=== PATIENT | male | born 1955 | race Hispanic/Latino ===

== ENCOUNTER 2017-05-13 12:58 | Emergency (ER) | payer MEDICAID ==
[2017-05-13 13:15] VITALS: RESP 18; TEMP 98.9
--- NOTE | 2017-05-13 13:44 | ED PDOC ---
Arrival/HPI - General Chief Complaint: Dizziness/Lightheaded Time Seen by Provider: 05/13/17 13:21 Historian: Patient - History of Present Illness Narrative History of Present Illness (Text): 05/13/17 13:25 Henry Donald is a 61 year old male, whose past medical history includes heart stents and vertigo, who presents to the emergency department complaining of dizziness that has gradually become worse since five days ago. Patient reports he was in [place] when his symptoms began causing him to go to the hospital. His symptoms have continued and he feels nauseous. He notes laying on one side and taking Meclozine makes him feel better. The dizziness is worse when he is lying flat. Patient denies any fever, shortness of breath, chest pain, focal weakness , or slurred speech. Patient notes taking Meclozine prior to arrival. PMD: Dr. Cross Time/Duration: < week (5 days) Symptom Onset: Gradual Symptom Course: Improving Activities at Onset: Light Modifying Factors (Text): better when laying on one side, worse when lying flat Associated Symptoms (Text): nausea, dizziness Past Medical History - Provider Review Nursing Documentation Reviewed: Yes - Infectious Disease Hx of Infectious Diseases: None - Cardiac Hx Cardiac Disorders: Yes Hx Hypertension: Yes Other/Comment: heart attack - Pulmonary Hx Respiratory Disorders: No - Neurological Hx Neurological Disorder: No - HEENT Hx HEENT Disorder: No - Renal Hx Renal Disorder: No - Endocrine/Metabolic Hx Endocrine Disorders: No - Hematological/Oncological Hx Blood Disorders: No - Integumentary Hx Dermatological Disorder: No - Musculoskeletal/Rheumatological Hx Musculoskeletal Disorders: No - Gastrointestinal Hx Gastrointestinal Disorders: No - Genitourinary/Gynecological Hx Genitourinary Disorders: No - Psychiatric Hx Psychophysiologic Disorder: Yes Hx Anxiety: Yes Hx Depression: Yes Hx Substance Use: No - Surgical History Hx Cardiac Catheterization: Yes Hx Coronary Stent: Yes (x1) Other/Comment: carpal tunnel - Anesthesia Hx Anesthesia: Yes Hx Anesthesia Reactions: No Family/Social History - Physician Review Nursing Documentation Reviewed: Yes Family/Social History: Unknown Family HX Smoking Status: Never Smoked Hx Alcohol Use: No Hx Substance Use: No Allergies/Home Meds Allergies/Adverse Reactions: Allergies No Known Allergies Allergy (Verified 05/13/17 13:08) Home Medications: Home Meds Medication Instructions Recorded Confirmed Aspirin [Adult Low Dose Aspirin EC] 325 mg PO DAILY 05/13/17 05/13/17 Atorvastatin [Lipitor] 40 mg PO DAILY 05/13/17 05/13/17 Losartan [Cozaar] 50 mg PO DAILY 05/13/17 05/13/17 Metoprolol [Lopressor] 50 mg PO BID 05/13/17 05/13/17 Sertraline [Zoloft] 100 mg PO DAILY 05/13/17 05/13/17 Review of Systems - Review of Systems Constitutional: absent: Fevers Respiratory: absent: SOB Cardiovascular: absent: Chest Pain Gastrointestinal: Nausea. absent: Abdominal Pain, Diarrhea Neurological: Dizziness. absent: Headache Physical Exam Vital Signs Reviewed: Yes Vital Signs Temp Pulse Resp BP Pulse Ox 05/13/17 16:00 65 18 134/79 96 05/13/17 13:13 98.9 F 63 18 136/86 95 Temperature: Afebrile Blood Pressure: Normal Pulse: Regular Respiratory Rate: Normal Appearance: Positive for: Well-Appearing, Non-Toxic, Comfortable Pain Distress: None Mental Status: Positive for: Alert and Oriented X 3 - Systems Exam Head: Present: Atraumatic, Normocephalic Pupils: Present: PERRL Extroacular Muscles: Present: EOMI Conjunctiva: Present: Normal Ears: Present: Other (bilateral cerumen ) Mouth: Present: Moist Mucous Membranes Neck: Present: Normal Range of Motion. No: MIDLINE TENDERNESS, Paraspinal Tenderness, JVD, Bruit Respiratory/Chest: Present: Clear to Auscultation, Good Air Exchange. No: Respiratory Distress, Accessory Muscle Use Cardiovascular: Present: Regular Rate and Rhythm, Normal S1, S2. No: Murmurs Abdomen: Present: Normal Bowel Sounds. No: Tenderness, Distention, Peritoneal Signs Upper Extremity: Present: Normal Inspection. No: Cyanosis, Edema Lower Extremity: Present: Normal Inspection. No: Edema Neurological: Present: GCS=15, CN II-XII Intact, Speech Normal, Motor Func Grossly Intact, Normal Sensory Function, Normal Cerebellar Funct, Gait Normal, Normal 2Pt Descrimination Skin: Present: Warm, Dry, Normal Color. No: Rashes Psychiatric: Present: Alert, Oriented x 3, Normal Insight, Normal Concentration Medical Decision Making ED Course and Treatment: 05/13/17 Impression: 61 year old male with dizziness. Clear physical exam. Normal neuro exam. Differential Diagnosis included but are not limited to: Benign Position Vertigo vs Arrythmia, less likely CVA Plan: -- CT Head -- EKG -- Labs -- Reglan -- Reassess and disposition Progress Notes: EKG: NSR at 60bpm with Qwaves in V1-V3, no ST elevations. No previous to compare. After reevaluation, patient no longer had symptoms of dizziness. He does feel like his ears are a little clogged and he will f/u with ENT. Neuro exam repeat is normal and unchanged. No ataxia. No dizziness or lightheadedness when standing. He will also f/u with his primary doctor Dr. Deluca - Lab Interpretations Lab Results: 05/13/17 14:05 05/13/17 14:17 Lab Results 05/13/17 14:17: Sodium 140, Potassium 4.4, Chloride 101, Carbon Dioxide 27, Anion Gap 16, BUN 20, Creatinine 1.0, Est GFR ( Amer) > 60, Est GFR (Non- Af Amer) > 60, Random Glucose 95, Calcium 9.6, Lactate Dehydrogenase 492, Total Creatine Kinase 87, Troponin I < 0.01 05/13/17 14:05: WBC 8.1, RBC 5.04, Hgb 15.3, Hct 44.5, MCV 88.3, MCH 30.4, MCHC 34.4, RDW 12.8, Plt Count 225, MPV 8.8, Gran % 73.3 H, Lymph % (Auto) 17.5 L, [place] % (Auto) 6.6 H, Eos % (Auto) 2.1, Baso % (Auto) 0.5, Gran # 5.91, Lymph # 1.4, [place] # 0.5, Eos # 0.2, Baso # 0.04 I have reviewed the lab results: Yes - RAD Interpretation Radiology Orders: 05/13/17 13:30 HEAD W/O CONTRAST [CT] Stat - Medication Orders Current Medication Orders: Discontinued Medications Metoclopramide HCl (Reglan) 10 mg IVP STAT STA Stop: 05/13/17 13:33 Last Admin: 05/13/17 13:55 Dose: 10 mg IVP Administration Document 05/13/17 13:55 HI (Rec: 05/13/17 14:14 [facility]) Charges for Administration # of IVP Administrations 1 - Scribe Statement The provider has reviewed the documentation as recorded by the Vera Young Provider Scribe Attestation: All medical record entries made by the Christinibe were at my direction and personally dictated by me. I have reviewed the chart and agree that the record accurately reflects my personal performance of the history, physical exam, medical decision making, and the department course for this patient. I have also personally directed, reviewed, and agree with the discharge instructions and disposition. Disposition/Present on Arrival - Present on Arrival Any Indicators Present on Arrival: No History of DVT/PE: No History of Uncontrolled Diabetes: No Urinary Catheter: No History of Decub. Ulcer: No History Surgical Site Infection Following: None - Disposition Have Diagnosis and Disposition been Completed?: Yes Diagnosis: Dizziness Disposition: HOME/ ROUTINE Disposition Time: 16:00 Patient Plan: Discharge Condition: IMPROVED Discharge Instructions (ExitCare): Dizziness (ED) Additional Instructions: Mr Donald, thank you for letting us take care of you today. Your provider was Dr. Tolbert. You were treated for Dizziness. The emergency medical care you received today was directed at your acute symptoms. If you were prescribed any medication, please fill it and take as directed. It may take several days for your symptoms to resolve. Return to the Emergency Department if your symptoms worsen, do not improve, or if you have any other problems. Please contact your doctor or call one of the physicians/clinics you have been referred to that are listed on the Patient Visit Information form that is included in your discharge packet. Bring any paperwork you were given at discharge with you along with any medications you are taking to your follow up visit. Our treatment cannot replace ongoing medical care by a primary care provider (PCP) outside of the emergency department. Thank you for allowing the [facility] team to be part of your care today. If you had an X-Ray or CT scan: A Radiologist will review the ED reading if any change in treatment is needed we will contact you. If you had a blood, urine, or wound culture: It will take several days for the results, if any change in treatment is needed we will contact you. If you had an STI test: It will take 48 hours for the results. Please call after 1 week if you have not heard back. Prescriptions: Meclizine [Meclizine*] 25 mg PO Q8 PRN #30 tab PRN Reason: Dizziness Referrals: Minerva Deluca MD [Primary Care Provider] - Follow up with primary Satnam Cox DO [Staff Provider] - Follow up with primary Forms: [employer] (Peruvian), WORK NOTE
[2017-05-13 14:18] LABS: BASO # 0.04 K/mm3 (0.0-2.0); BASO % 0.5 % (0.0-3.0); EOS # 0.2 (0.0-0.7); EOS % 2.1 % (1.5-5.0); GRAN # 5.91 (1.4-6.5); GRAN % 73.3 % (50.0-68.0); HEMATOCRIT 44.5 % (42.0-52.0); LYMPH # 1.4 (1.2-3.4); LYMPH % 17.5 % (22.0-35.0); MEAN CELL VOLUME 88.3 fl (80.0-105.0); MEAN CORPUSCULAR HEMOGLOBIN 30.4 pg (25.0-35.0); MEAN CORPUSCULAR HGB CONC 34.4 g/dl (31.0-37.0); MEAN PLATELET VOLUME 8.8 fl (7.0-11.0); MONO # 0.5 (0.1-0.6); MONO % 6.6 % (1.0-6.0); RED CELL DISTRIBUTION WIDTH 12.8 % (11.5-14.5); WHITE BLOOD COUNT 8.1 10^3/ul (4.5-11.0)
[2017-05-13 14:44] LABS: TROPONIN I < 0.01 ng/mL
[2017-05-13 14:52] LABS: BLOOD UREA NITROGEN 20 mg/dL (7-21); CALCIUM 9.6 mg/dL (8.4-10.5); CARBON DIOXIDE 27 mmol/L (21-33); CHLORIDE 101 mmol/L (98-107); GFR AFRICAN-AMERICAN > 60; GLUCOSE,RANDOM 95 mg/dL (70-110); POTASSIUM 4.4 mmol/L (3.6-5.0); SODIUM 140 mmol/L (132-148)
--- NOTE | 2017-05-13 15:38 | CT ---
PROCEDURE: CT HEAD WITHOUT CONTRAST. HISTORY: r/o cva COMPARISON: None available. TECHNIQUE: Axial computed tomography images were obtained through the head/brain without intravenous contrast. Radiation dose: Total exam DLP = 941.65 mGy-cm. This CT exam was performed using one or more of the following dose reduction techniques: Automated exposure control, adjustment of the mA and/or kV according to patient size, and/or use of iterative reconstruction technique. FINDINGS: HEMORRHAGE: No intracranial hemorrhage. BRAIN: No mass effect or edema. No atrophy or chronic microvascular ischemic changes. VENTRICLES: Unremarkable. No hydrocephalus. CALVARIUM: Unremarkable. PARANASAL SINUSES: Unremarkable as visualized. No significant inflammatory changes. MASTOID AIR CELLS: Unremarkable as visualized. No inflammatory changes. OTHER FINDINGS: None. IMPRESSION: Unremarkable unenhanced head CT. Follow-up CT or MRI are available for additional characterization if clinically warranted.
[2017-05-13 16:17] VITALS: BP 134/79; PULSE 65; O2SAT 96
--- NOTE | 2017-05-14 08:43 | CARD ---
APPROVED REPORT EKG Measurement Heart [id number] CA [id number] [id number] <Conclusion> Normal sinus rhythm Septal infarct, age undetermined LAD IVCD STTW changes
== END 2017-05-13 16:19 | disposition home or self-care (01) ==
LOC: ED 12:58
DX: R42 Dizziness and giddiness (principal); I10 Essential (primary) hypertension; Z95.5 Presence of coronary angioplasty implant and graft
CPT/HCPCS: 70450; 80048; 82550; 83615; 84484; 85025; 93005; 96374; 99285; J2765

== ENCOUNTER 2017-12-31 07:08 | Emergency (ER) | payer MEDICAID ==
[2017-12-31 07:25] VITALS: BMI 43.8
[2017-12-31 07:26] VITALS: RESP 19
[2017-12-31 08:07] LABS: BASO # 0.02 K/mm3 (0.0-2.0); BASO % 0.2 % (0.0-3.0); EOS # 0.2 (0.0-0.7); EOS % 1.9 % (1.5-5.0); GRAN # 5.8 (1.4-6.5); GRAN % 65.2 % (50.0-68.0); HEMOGLOBIN 15.3 g/dL (14.0-18.0); LYMPH # 2.3 (1.2-3.4); LYMPH % 26.1 % (22.0-35.0); MEAN CELL VOLUME 86.3 fl (80.0-105.0); MEAN CORPUSCULAR HEMOGLOBIN 29.2 pg (25.0-35.0); MEAN CORPUSCULAR HGB CONC 33.8 g/dl (31.0-37.0); MEAN PLATELET VOLUME 8.6 fl (7.0-11.0); MONO # 0.6 (0.1-0.6); MONO % 6.6 % (1.0-6.0); RBC 5.24 10^6/uL (3.5-6.1); RED CELL DISTRIBUTION WIDTH 13.1 % (11.5-14.5); WHITE BLOOD COUNT 8.9 10^3/ul (4.5-11.0)
[2017-12-31 08:20] LABS: ALB/GLOB RATIO 1.4 (1.1-1.8); ALBUMIN 4.4 g/dL (3.0-4.8); ALT/SGPT 40 U/L (7-56); AST/SGOT 26 U/L (17-59); BLOOD UREA NITROGEN 18 mg/dL (7-21); CALCIUM 9.6 mg/dL (8.4-10.5); GFR AFRICAN-AMERICAN > 60; GFR NON-AFRICAN AMERICAN > 60
--- NOTE | 2017-12-31 08:25 | ED PDOC ---
Arrival/HPI <Brett Anthony - Last Filed: 12/31/17 10:52> - General Historian: Patient - History of Present Illness Time/Duration: Prior to Arrival <Car Cronin - Last Filed: 12/31/17 12:06> - General Chief Complaint: Dizziness/Lightheaded Time Seen by Provider: 12/31/17 07:27 - History of Present Illness Narrative History of Present Illness (Text): 12/31/17 08:16 Patient is a 62 M with CAD s/p stents, obstructive sleep apnea, and vertigo presenting with complaints of lightheadedness and tinnitus. Patient states this morning when he was waiting for the taxi he quickly turned around and felt lightheaded. Patient did not fall or lose consciousness. Patient endorses migraine headache this past week however states he currently doesn't have any headaches. Patient had previous episodes of lightheadedness in April 2017 in which he had similar symptoms and was subsequently started on meclizine which relieved his symptoms. Patient also states he joined a group for vertigo for support. Denies loss of consciousness, current shortness of breath, chest pain, dizziness, nausea, vomiting, diarrhea, headache, body ache, fevers, chills ,nasal congestion, rhinorrhea, pruritic eyes, headache, tenderness upon palpation of sinuses, dysuria; patient states he currently feels fine, his symptoms completely resolved upon entering the Emergency department. (Car Cronin) Past Medical History - Provider Review Nursing Documentation Reviewed: Yes - Infectious Disease Hx of Infectious Diseases: None - Cardiac Hx Cardiac Disorders: Yes Hx MS: Yes Hx Hypertension: Yes Hx Hypotension: Yes Other/Comment: heart attack - Pulmonary Hx Respiratory Disorders: No - Neurological Hx Vertigo: Yes - HEENT Hx HEENT Disorder: No - Renal Hx Renal Disorder: No - Endocrine/Metabolic Hx Endocrine Disorders: No - Hematological/Oncological Hx Blood Disorders: No - Integumentary Hx Dermatological Disorder: No - Musculoskeletal/Rheumatological Hx Musculoskeletal Disorders: No - Gastrointestinal Hx Gastrointestinal Disorders: No - Genitourinary/Gynecological Hx Genitourinary Disorders: No - Psychiatric Hx Psychophysiologic Disorder: Yes Hx Anxiety: Yes Hx Depression: Yes Hx Substance Use: No - Surgical History Hx Cardiac Catheterization: Yes Hx Coronary Stent: Yes (x1) Other/Comment: carpal tunnel - Anesthesia Hx Anesthesia: Yes Hx Anesthesia Reactions: No <Car Cronin - Last Filed: 12/31/17 12:06> Family/Social History - Physician Review Nursing Documentation Reviewed: Yes Family/Social History: Other Smoking Status: Never Smoked Hx Alcohol Use: No Hx Substance Use: No <Car Cronin - Last Filed: 12/31/17 12:06> Allergies/Home Meds <EmilianoBrett seaman - Last Filed: 12/31/17 10:52> <Car Cronin - Last Filed: 12/31/17 12:06> Allergies/Adverse Reactions: Allergies No Known Allergies Allergy (Verified 05/13/17 13:08) Home Medications: Home Meds Medication Instructions Recorded Confirmed Aspirin [Adult Low Dose Aspirin EC] 325 mg PO DAILY 05/13/17 12/31/17 Atorvastatin [Lipitor] 40 mg PO DAILY 05/13/17 12/31/17 Losartan [Cozaar] 50 mg PO DAILY 05/13/17 12/31/17 Metoprolol [Lopressor] 50 mg PO BID 05/13/17 12/31/17 Sertraline [Zoloft] 100 mg PO DAILY 05/13/17 12/31/17 Review of Systems - Physician Review All systems were reviewed & negative as marked: Yes - Review of Systems Constitutional: Normal. absent: Fatigue, Fevers Eyes: Normal. absent: Vision Changes ENT: Normal. absent: Hearing Changes Respiratory: Normal. absent: SOB Cardiovascular: absent: Chest Pain, Palpitations Gastrointestinal: Normal. absent: Abdominal Pain, Diarrhea, Nausea, Vomiting Genitourinary Male: Normal. absent: Dysuria Musculoskeletal: Normal Skin: Normal Neurological: Normal. absent: Headache, Dizziness Psychiatric: Anxiety <Car Cronin - Last Filed: 12/31/17 12:06> Physical Exam Vital Signs Reviewed: Yes Temperature: Afebrile Blood Pressure: Normal Pulse: Regular Respiratory Rate: Normal Appearance: Positive for: Well-Appearing, Non-Toxic, Comfortable Pain Distress: None Mental Status: Positive for: Alert and Oriented X 3 Finger Stick Blood Glucose: 110 - Systems Exam Head: Present: Atraumatic, Normocephalic Pupils: Present: PERRL Extroacular Muscles: Present: EOMI Conjunctiva: Present: Normal Mouth: Present: Moist Mucous Membranes Neck: Present: Normal Range of Motion Respiratory/Chest: Present: Clear to Auscultation. No: Wheezes, Rhonchi Cardiovascular: Present: Regular Rate and Rhythm, Normal S1, S2 Abdomen: Present: Normal Bowel Sounds. No: Tenderness, Distention Upper Extremity: Present: Normal Inspection Lower Extremity: Present: Normal Inspection Neurological: Present: GCS=15, CN II-XII Intact, Speech Normal Skin: Present: Warm, Normal Color Psychiatric: Present: Alert, Oriented x 3, Normal Insight, Normal Concentration , Anxious <Car Cronin - Last Filed: 12/31/17 12:06> Vital Signs Temp Pulse Resp BP Pulse Ox 12/31/17 11:09 98.0 F 68 19 136/85 99 12/31/17 07:26 98.1 F 82 19 153/100 H 100 12/31/17 07:25 98.1 F 82 19 153/100 H 100 Medical Decision Making <Brett Anthony - Last Filed: 12/31/17 10:52> Re-evaluation Time: 08:41 Reassessment Condition: Unchanged - Lab Interpretations I have reviewed the lab results: Yes Interpretation: All labs normal - EKG Interpretation Interpreted by ED Physician: Yes Type: 12 lead EKG Comparison: Similar to previous EKG <Car Cronin - Last Filed: 12/31/17 12:06> ED Course and Treatment: 12/31/17 08:36 Henry Donald is a 62 year old male who presents to the emergency department today for a complaint of lightheadedness. In agreement with resident note which contains more details about the patient. Patient was seen and evaluated with resident. Came up with plan and treatment together (Brett Anthony) CBC, CMP, Trop, CT head, EKG Labs show no abnormalities EKG unchanged from previous EKG 12/31/17 08:48 CT head: mild cerebral atrophy. Intracranial vertebral, internal carotid and middle cerebral arterial atherosclerotic vascular disease appearance is suggested. 12/31/17 11:38 Patient states when he originally had these symptoms in April he was referred to ENT where he had an extensive work up done. Patient states he was diagnosed with sinusitus. Patient requests referral again to ENT and states he will follow up with his PMD. Currently denies any symptoms of nasal congestion, rhinorrhea, pruritic eyes, headache, tenderness upon palpation of sinuses. States symptoms have resolved completely, was able to get up and walk to the restroom without feeling dizzy. (Car Cronin) - Lab Interpretations Lab Results: 12/31/17 07:40 12/31/17 07:40 Lab Results 12/31/17 07:40: Sodium 144, Potassium 4.4, Chloride 102, Carbon Dioxide 29, Anion Gap 18, BUN 18, Creatinine 1.0, Est GFR ( Amer) > 60, Est GFR (Non- Af Amer) > 60, Random Glucose 121 H, Calcium 9.6, Phosphorus 4.3, Magnesium 2.2 , Total Bilirubin 0.8, AST 26, ALT 40, Alkaline Phosphatase 90, Total Protein 7.7, Albumin 4.4, Globulin 3.2, Albumin/Globulin Ratio 1.4 12/31/17 07:40: PT 11.1, INR 0.97, APTT 31.5 12/31/17 07:40: WBC 8.9, RBC 5.24, Hgb 15.3, Hct 45.2, MCV 86.3, MCH 29.2, MCHC 33.8, RDW 13.1, Plt Count 265, MPV 8.6, Gran % 65.2, Lymph % (Auto) 26.1, [place] % (Auto) 6.6 H, Eos % (Auto) 1.9, Baso % (Auto) 0.2, Gran # 5.80, Lymph # (Auto ) 2.3, [place] # (Auto) 0.6, Eos # (Auto) 0.2, Baso # (Auto) 0.02 12/31/17 07:38: POC Glucose (mg/dL) 110 12/31/17 05:30: Troponin I < 0.01 - RAD Interpretation Radiology Orders: 12/31/17 07:59 HEAD W/O CONTRAST [CT] Stat - Scribe Statement The provider has reviewed the documentation as recorded by the Scribe <Brett Anthony - Last Filed: 12/31/17 10:52> <Car Cronin - Last Filed: 12/31/17 12:06> - Scribe Statement Ashlee Soliman Provider Scribe Attestation: All medical record entries made by the Scribe were at my direction and personally dictated by me. I have reviewed the chart and agree that the record accurately reflects my personal performance of the history, physical exam, medical decision making, and the department course for this patient. I have also personally directed, reviewed, and agree with the discharge instructions and disposition. (Brett Anthony) Disposition/Present on Arrival <Brett Anthony - Last Filed: 12/31/17 10:52> - Present on Arrival Any Indicators Present on Arrival: No History of DVT/PE: No History of Uncontrolled Diabetes: No Urinary Catheter: No History of Decub. Ulcer: No History Surgical Site Infection Following: None - Disposition Have Diagnosis and Disposition been Completed?: Yes Disposition Time: 11:41 Patient Plan: Discharge <Car Cronin - Last Filed: 12/31/17 12:06> - Disposition Diagnosis: Vertigo Disposition: HOME/ ROUTINE Patient Problems: Current Active Problems Problem Status Onset Vertigo Acute Condition: FAIR Discharge Instructions (ExitCare): Vertigo (a Type of Dizziness) (DC) Additional Instructions: Mr. Donald, thank you for letting us take care of you today. The emergency medical care you received today was directed at your acute symptoms. If you were prescribed any medication, please fill it and take as directed. It may take several days for your symptoms to resolve. Return to the Emergency Department if your symptoms worsen, do not improve, or if you have any other problems. Please contact your doctor or call one of the physicians/clinics you have been referred to that are listed on the Patient Visit Information form that is included in your discharge packet. Bring any paperwork you were given at discharge with you along with any medications you are taking to your follow up visit. Our treatment cannot replace ongoing medical care by a primary care provider (PCP) outside of the emergency department. Please be sure to follow up with ENT surgeon Dr. Cox for further evaluation. Thank you for allowing the [facility] team to be part of your care today. If you had an X-Ray or CT scan: A Radiologist will review the ED reading if any change in treatment is needed we will contact you. If you had a blood, urine, or wound culture: It will take several days for the results, if any change in treatment is needed we will contact you. If you had an STI test: It will take 48 hours for the results. Please call after 1 week if you have not heard back. Referrals: Minerva Deluca MD [Primary Care Provider] - Follow up with primary Satnam Cox DO [Staff Provider] - Follow up with primary Forms: [employer] (Swedish)
[2017-12-31 08:27] LABS: INR 0.97 (0.93-1.08); PARTIAL THROMBOPLASTIN TIME 31.5 Seconds (25.1-36.5); PROTHROMBIN TIME 11.1 SECONDS (9.4-12.5)
--- NOTE | 2017-12-31 08:27 | CT ---
PROCEDURE: CT HEAD WITHOUT CONTRAST. HISTORY: pre-syncope COMPARISON: None available. TECHNIQUE: Axial computed tomography images were obtained through the head/brain without intravenous contrast. Radiation dose: Total exam DLP = 1015 mGy-cm. This CT exam was performed using one or more of the following dose reduction techniques: Automated exposure control, adjustment of the mA and/or kV according to patient size, and/or use of iterative reconstruction technique. FINDINGS: HEMORRHAGE: No intracranial hemorrhage. BRAIN: No mass effect or edema. There is mild cerebral atrophy commensurate with the age noted. No gross chronic microvascular ischemic changes. VENTRICLES: Age-appropriate appearing. . No hydrocephalus. CALVARIUM: Unremarkable. PARANASAL SINUSES: Unremarkable as visualized. No significant inflammatory changes. MASTOID AIR CELLS: Unremarkable as visualized. No inflammatory changes. OTHER FINDINGS: Vertebrobasilar and internal carotid and middle cerebral arterial calcifications/the slight hyperdense appearance is present. IMPRESSION: No intracranial hemorrhage or mass effect. Mild cerebral atrophy. Intracranial vertebral, internal carotid and middle cerebral arterial atherosclerotic vascular disease appearance is suggested. If more sensitive evaluation for any acute potential pathology is needed, consider MRI of the brain.
[2017-12-31 12:13] VITALS: BP 130/87; PULSE 69; TEMP 98.1; O2SAT 98
--- NOTE | 2017-12-31 13:07 | CARD ---
APPROVED REPORT EKG Measurement Heart [id number] CA [id number] <Conclusion> Poor data quality, interpretation may be adversely affected Normal sinus rhythm Septal infarct, age undetermined Abnormal ECG
== END 2017-12-31 12:13 | disposition home or self-care (01) ==
LOC: ED 07:08
DX: R42 Dizziness and giddiness (principal); I25.10 Atherosclerotic heart disease of native coronary artery without angina pectoris; I25.2 Old myocardial infarction; Z95.5 Presence of coronary angioplasty implant and graft

== ENCOUNTER 2018-03-15 11:54 | Emergency (ER) | payer MEDICAID ==
[2018-03-15 11:55] VITALS: BMI 43.8
[2018-03-15 12:41] VITALS: BP 150/80; PULSE 58; RESP 18; TEMP 98.2; O2SAT 100
--- NOTE | 2018-03-15 13:35 | ED PDOC ---
Arrival/HPI - History of Present Illness Activities at Onset: Rest <Suray Calderon - Last Filed: 03/15/18 16:06> <Amol Tolbert - Last Filed: 03/15/18 17:41> - General Chief Complaint: Eye Problem Time Seen by Provider: 03/15/18 12:50 - History of Present Illness Narrative History of Present Illness (Text): 03/15/18 13:38 Mr. Donald is a pleasant 62 year old male with PMHx CAD, SD s/p stents, vertigo who presents to ED with b/l eye redness that began last night. Patient states that he follows with a neurologist for dizziness that he has been experiencing since 04/2017. 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 Pt brought hismelf to the ER as he was afraid that his eye redness might be related to findings on his recent imaging and wanted to make sure he was not experiencing any acute neurological or bleeding issues. Pt denies any dizziness, headache, paresthesias, facial droop, muscle weakness, easy bleeding or bruising, or blood in the stool. Pt admits to slight itchiness in both eyes but denies any purulence or discharge, vision changes fevers, or chills. Pt recently had MRA of the head and neck as well as MRI of the brain on 03/01 which were all unremarkable. Patient was previously unaware of these results, and findings were subsequently discussed with the patient today. (Surya Calderon) Past Medical History - Infectious Disease Hx of Infectious Diseases: None - Tetanus Immunization Tetanus Immunization: Unknown - Cardiac Hx Cardiac Disorders: Yes Hx SD: Yes Hx Hypertension: Yes Hx Hypotension: Yes Other/Comment: heart attack - Pulmonary Hx Respiratory Disorders: No - Neurological Hx Neurological Disorder: Yes Hx Vertigo: Yes Other/Comment: VERTEBRAL ARTERY BLOCKAGE - HEENT Hx HEENT Disorder: No - Renal Hx Renal Disorder: No - Endocrine/Metabolic Hx Endocrine Disorders: No - Hematological/Oncological Hx Blood Disorders: No - Integumentary Hx Dermatological Disorder: No - Musculoskeletal/Rheumatological Hx Musculoskeletal Disorders: No - Gastrointestinal Hx Gastrointestinal Disorders: No - Genitourinary/Gynecological Hx Genitourinary Disorders: No - Psychiatric Hx Psychophysiologic Disorder: Yes Hx Anxiety: Yes Hx Depression: Yes Hx Substance Use: No - Surgical History Hx Cardiac Catheterization: Yes Hx Coronary Stent: Yes (x1) Other/Comment: carpal tunnel - Anesthesia Hx Anesthesia: Yes Hx Anesthesia Reactions: No <Surya Calderon - Last Filed: 03/15/18 16:06> Family/Social History Family/Social History: No Known Family HX Smoking Status: Never Smoked Hx Alcohol Use: No Hx Substance Use: No <Surya Calderon - Last Filed: 03/15/18 16:06> Allergies/Home Meds <Surya Calderon - Last Filed: 03/15/18 16:06> <TomaszAmol L - Last Filed: 03/15/18 17:41> Allergies/Adverse Reactions: Allergies No Known Allergies Allergy (Verified 03/15/18 13:00) Home Medications: Home Meds Medication Instructions Recorded Confirmed Aspirin [Adult Low Dose Aspirin EC] 325 mg PO DAILY 05/13/17 03/15/18 Atorvastatin [Lipitor] 40 mg PO DAILY 05/13/17 03/15/18 Losartan [Cozaar] 50 mg PO DAILY 05/13/17 03/15/18 Metoprolol [Lopressor] 50 mg PO BID 05/13/17 03/15/18 Sertraline [Zoloft] 100 mg PO DAILY 05/13/17 03/15/18 Clopidogrel [Plavix] 75 mg PO DAILY 03/15/18 03/15/18 diaZEpam [Valium] 2 mg PO BID 03/15/18 03/15/18 Review of Systems - Physician Review All systems were reviewed & negative as marked: Yes - Review of Systems Constitutional: Normal. absent: Fatigue, Fevers Eyes: Other (bilateral eye redness). absent: Vision Changes, Photophobia, Eye Pain ENT: absent: Sore Throat, Rhinorrhea, Epistaxis, Sinus Congestion Respiratory: absent: SOB, Cough, Sputum Cardiovascular: absent: Chest Pain, Edema, LARKIN, Syncope Gastrointestinal: absent: Abdominal Pain, Stool Changes, Constipation, Diarrhea , Nausea, Vomiting, Appetite Changes, Hematochezia, Hematemesis Genitourinary Male: absent: Urinary Output Changes Neurological: Normal. absent: Headache, Dizziness, Focal Weakness, Facial Droop Hemo/Lymphatic: absent: Adenopathy, Easy Bleeding, Easy Bruising Psychiatric: Anxiety <Surya Calderon - Last Filed: 03/15/18 16:06> Physical Exam Temperature: Afebrile Blood Pressure: Normal Pulse: Regular Respiratory Rate: Normal Appearance: Positive for: Well-Appearing, Non-Toxic, Comfortable Pain Distress: None Mental Status: Positive for: Alert and Oriented X 3. No: Confused, Agitated - Systems Exam Head: Present: Atraumatic, Normocephalic Pupils: Present: PERRL Extroacular Muscles: Present: EOMI Conjunctiva: Present: Normal Mouth: Present: Dry Pharnyx: Present: Normal. No: EXUDATE, Uvular Deviation Nose (External): Present: Atraumatic Neck: Present: Normal Range of Motion. No: MIDLINE TENDERNESS, JVD, Lymphadenopathy Respiratory/Chest: Present: Clear to Auscultation. No: Accessory Muscle Use, Wheezes, Decreased Breath Sounds Cardiovascular: Present: Regular Rate and Rhythm, Normal S1, S2 Abdomen: Present: Normal Bowel Sounds, Other (+reducible ventral hernia). No: Tenderness Upper Extremity: Present: Normal Inspection. No: Cyanosis, Edema Lower Extremity: Present: Normal Inspection. No: Edema Neurological: Present: GCS=15, CN II-XII Intact, Speech Normal, Motor Func Grossly Intact, Normal Sensory Function, Normal Cerebellar Funct, Gait Normal Skin: Present: Warm, Normal Color. No: Rashes Lymphatic: No: Cervical Adenopathy Psychiatric: Present: Alert, Oriented x 3, Normal Insight <Surya Calderon - Last Filed: 03/15/18 16:06> Vital Signs Temp Pulse Resp BP Pulse Ox 03/15/18 12:40 98.2 F 58 L 18 150/80 100 Medical Decision Making <Surya Calderon - Last Filed: 03/15/18 16:06> <Amol Tolbert - Last Filed: 03/15/18 17:41> ED Course and Treatment: 03/15/18 13:57 DDx: Conjunctivitis: Allergic vs Viral vs Bacterial Stroke or acute hemorrhage ruled out based on exam and recent imaging (Surya Calderon) 03/15/18 14:17 Burton Donald is a 62 year old male who presents to the emergency department with a complaint of bilateral eye redness since last night. In agreement with resident note, which includes further HPI details. Patient was seen and evaluated with resident, came up with plan and treatment together. (Amol Tolbert) - Medication Orders Current Medication Orders: Erythromycin Eye Ointment .5 mg TID Pt to follow up with primary and ophthalmology 03/15/18 14:00 (Surya Calderon) <Surya Calderon - Last Filed: 03/15/18 16:06> - Scribe Statement The provider has reviewed the documentation as recorded by the Scribe <Amol Tolbert - Last Filed: 03/15/18 17:41> - Scribe Statement Ashlee Soliman Provider Scribe Attestation: All medical record entries made by the Scribe were at my direction and personally dictated by me. I have reviewed the chart and agree that the record accurately reflects my personal performance of the history, physical exam, medical decision making, and the department course for this patient. I have also personally directed, reviewed, and agree with the discharge instructions and disposition. (Amol Tolbert) Disposition/Present on Arrival - Present on Arrival Any Indicators Present on Arrival: No History of DVT/PE: No History of Uncontrolled Diabetes: No Urinary Catheter: No History of Decub. Ulcer: No History Surgical Site Infection Following: None - Disposition Have Diagnosis and Disposition been Completed?: Yes Disposition Time: 14:01 <Surya Calderon - Last Filed: 03/15/18 16:06> - Disposition Have Diagnosis and Disposition been Completed?: Yes <Amol Tolbert - Last Filed: 03/15/18 17:41> - Disposition Diagnosis: Eye redness Disposition: HOME/ ROUTINE Condition: GOOD Discharge Instructions (ExitCare): Conjunctivitis (Noninfectious Pinkeye) Additional Instructions: BURTON DONALD, thank you for letting us take care of you today. Your provider was Amol Tolbert DO and you were treated for Conjunctivitis. The emergency medical care you received today was directed at your acute symptoms. If you were prescribed any medication, please fill it and take as directed. It may take several days for your symptoms to resolve. Return to the Emergency Department if your symptoms worsen, do not improve, or if you have any other problems. Please contact your doctor or call one of the physicians/clinics you have been referred to that are listed on the Patient Visit Information form that is included in your discharge packet. Bring any paperwork you were given at discharge with you along with any medications you are taking to your follow up visit. Our treatment cannot replace ongoing medical care by a primary care provider outside of the emergency department. Thank you for allowing the [facility] team to be part of your care today. If you had an X-Ray or CT scan: A Radiologist will review the ED reading if any change in treatment is needed we will contact you. If you had a blood, urine, or wound culture: It will take several days for the results, if any change in treatment is needed we will contact you. If you had an STI test: It will take 48 hours for the results. Please call after 1 week if you have not heard back. Prescriptions: Erythromycin 0.5% [Ilytocin] 0.5 gm OP TID #1 tube Referrals: Minerva Deluca MD [Primary Care Provider] - Follow up with primary Hugo Baxter MD [Staff Provider] - Follow up with primary Forms: WORK NOTE
== END 2018-03-15 14:00 | disposition home or self-care (01) ==
LOC: ED 11:54
DX: H10.9 Unspecified conjunctivitis (principal)